=== PATIENT | male | born 1995 | race Caucasian/White ===

== ENCOUNTER 2017-01-02 11:07 | Emergency (ER) | payer OTHER ==
[2017-01-02 12:15] VITALS: BP 110/67
--- NOTE | 2017-01-02 13:05 | ED ---
Throat Pain/Nasal Congestion - HPI Summary HPI Summary: 21M presents with sore throat for two days. He states he has had a fever. He admits to some fatigue. He denies any history of strept or mono. He denies any abdominal pain, n/v. He denies any cough or sinus congestion. He denies any ear pain. Has been taking tyenlol and ibuprofen. - History of Current Complaint Chief Complaint: UCGeneralIllness Time Seen by Provider: 01/02/17 12:10 - Allergies/Home Medications Allergies/Adverse Reactions: Allergies Allergy/AdvReac Type Severity Reaction Status Date / Time No Known Allergies Allergy Verified 01/02/17 11:58 PMH/Surg Hx/FS Hx/Imm Hx Endocrine/Hematology History: Denies: Hx Anticoagulant Therapy Respiratory History: Denies: Hx Asthma Infectious Disease History: No Infectious Disease History: Denies: Traveled Outside the [place] in Last 30 Days - Family History Known Family History: Negative: Diabetes - Social History Alcohol Use: Weekly Alcohol Amount: [id number] Substance Use Type: Reports: None Smoking Status (MU): Never Smoked Tobacco Review of Systems Positive: Fever Positive: Sore Throat Negative: Chest Pain Negative: Shortness Of Breath All Other Systems Reviewed And Are Negative: Yes Physical Exam Triage Information Reviewed: Yes Vital Signs On Initial Exam: Initial Vitals Temp Pulse Resp BP Pulse Ox 97.3 F 87 16 110/67 98 01/02/17 11:59 01/02/17 11:59 01/02/17 11:59 01/02/17 11:59 01/02/17 11:59 Vital Signs Reviewed: Yes Appearance: Positive: Well-Appearing Skin: Positive: Warm, Dry Head/Face: Positive: Normal Head/Face Inspection Eyes: Positive: Normal, EOMI, PHUONG, Conjunctiva Clear ENT: Positive: Pharyngeal erythema, Tonsillar swelling - +2, Other - uvula midline, soft palate symmetric,. Negative: Tonsillar exudate, Trismus, Muffled/ hoarse voice Neck: Positive: Supple, Nontender, No Lymphadenopathy Respiratory/Lung Sounds: Positive: Clear to Auscultation, Breath Sounds Present Cardiovascular: Positive: Normal, RRR Abdomen Description: Positive: Nontender, Soft Bowel Sounds: Positive: Present Musculoskeletal: Positive: Normal Neurological: Positive: Normal Psychiatric: Positive: Normal Diagnostics - Vital Signs Vital Signs Temp Pulse Resp BP Pulse Ox 01/02/17 11:59 97.3 F 87 16 110/67 98 - Laboratory Lab Results: Lab Results 01/02/17 Range/Units 12:13 Group A Strep Rapid Negative (Negative) Lab Statement: Any lab studies that have been ordered have been reviewed, and results considered in the medical decision making process. EENT Course/Dx - Course Course Of Treatment: 21M presents with sore throat for two days. He states he has had a fever. He admits to some fatigue. He denies any history of strept or mono. He denies any abdominal pain, n/v. He denies any cough or sinus congestion. He denies any ear pain. Has been taking tyenlol and ibuprofen. on exam phanyx red with no exudate on tonsils +2. uvula midline, soft palate symmetric. no trismus. strept neg. will treat with decadron for swelling of tonsils. could be mono but will not change treatment plan. patient understands and agrees with plan. - Differential Diagnoses Differential Diagnoses: Pharyngitis, Other - mono, strept - Diagnoses Provider Diagnoses: Pharyngitis Discharge - Discharge Plan Condition: Good Disposition: HOME Prescriptions: Dexamethasone TAB* [Decadron TAB*] 4 mg PO DAILY #5 tab Magic Mouth Was-HARPREET/MAAL/LIDO* 5 ml SWISH SPIT QID #100 ml Patient Education Materials: Pharyngitis (ED) Referrals: [facility] [place] [facility] [Outside] Additional Instructions: Magic mouthwash 5ml swish and spit can use 4x a day Steroid once a day for 5 days Take Tylenol or ibuprofen for pain and fever every 6 hours Can gargle salt water Can use cough drops or products such as cloraseptic spray Establish care with primary care physician Return to ED if develop fever does not respond to Tylenol or ibuprofen, inability to swallow, difficulty breathing or any new or worsening symptoms
== END 2017-01-02 13:19 | disposition home or self-care (01) ==
LOC: UCCORT 11:07
DX: J02.9 Acute pharyngitis, unspecified (principal)
CPT/HCPCS: 87651; 99202; G0463

== ENCOUNTER 2017-05-16 11:57 | Emergency (ER) | payer OTHER | END 2017-05-16 15:34 | disposition left against medical advice (07) | LOC: UCCORT 11:57 | DX: R68.89 Other general symptoms and signs (principal); Z53.21 Procedure and treatment not carried out due to patient leaving prior to being seen by health care provider ==